=== PATIENT | male | born 1965 | race Caucasian/White ===

== ENCOUNTER 2017-01-30 15:53 | Emergency (ER) | payer SELFPAY ==
[~2017-01-30] VITALS: Ht 165.1 cm; Wt 69.4 kg
[2017-01-30 16:02] VITALS: BP 123/80
--- NOTE | 2017-01-30 16:10 | NUR ---
BIBSLF TO ED FOR LEFT FOOT REDNESS AND PAIN X LAST NIGHT, NAD NOTED, VSS, WAITING FOR MD TELLO.
--- NOTE | 2017-01-30 17:16 | NUR ---
BLOOD SUGAR 93.
== END 2017-01-30 17:58 | disposition home or self-care (01) ==
LOC: ER 16:03
DX: L02.612 Cutaneous abscess of left foot (principal); L03.116 Cellulitis of left lower limb; E11.9 Type 2 diabetes mellitus without complications
CPT/HCPCS: 10060; 82962; 99283; A4606; A6402; J3490 ×2; Z7610